=== PATIENT | female | born 1970 | race Caucasian/White ===

== ENCOUNTER → 2024-02-01 09:15 | Outpatient (CLI) | payer OTHER, MEDICAID, SELFPAY ==
--- NOTE | 2024-02-01 09:18 | DI.RAD.S_ITS ---
PROCEDURE: XR CHEST 2V INDICATIONS: Cough, eval for pna TECHNIQUE: 2 views of the chest were acquired. COMPARISON: [facility], CT, CT CHEST WITHOUT CONTRAST, 12/25/2022, 14:06. FINDINGS: Surgical changes and devices: None. Lungs and pleura: No consolidation identified. Somewhat prominent pulmonary markings. No pleural effusions or pneumothorax. Mediastinum: Mediastinal contours are normal. Heart size is normal. Bones and chest wall: No suspicious bony abnormalities. Soft tissues appear unremarkable. IMPRESSION: Somewhat prominent pulmonary markings. This could represent atypical pneumonia or bronchitis. Pulmonary edema is also in the differential diagnosis. No consolidation identified. Dictated by: Noe Lopez M.D. on 02/01/2024 at 13:51 Approved by: Noe Lopez M.D. on 02/01/2024 at 13:54
[2024-02-02 07:09] LABS: IGA 172 mg/dL (87-352); IGG 898 mg/dL (586-1602); IGM 69 mg/dL (26-217)
[2024-02-04 05:08] LABS: Aspergillus fumigatus IgE <0.10 kU/L (Class 0)
== END ==
PROVIDERS: PCP Nurse Practitioner Family; Referring Provider Internal Medicine Critical Care Medicine; Visit Provider Internal Medicine Critical Care Medicine
DX: R05.9 Cough, unspecified (principal)
CPT/HCPCS: 36415; 71046; 82784; 86003